=== PATIENT | male | born 1935 | race Asian ===

== ENCOUNTER 2018-07-23 15:41 | Inpatient (IN) | payer OTHER, MEDICAID ==
[~2018-07-23] VITALS: Ht 167.6 cm; Wt 64.0 kg
[2018-07-23 15:51] VITALS: BP_SYST 157
--- NOTE | 2018-07-23 16:12 | NUR ---
Patient to ER bed 3 to gown for evaluation. Side rails up. Report given to Suze KEARNS.
--- NOTE | 2018-07-23 16:27 | NUR ---
patient is AOx4 coming from home with family at bedside. patient c/o generalized weakness and flu like symptoms x 2 days. patient has not had a flu shot this year. patient denies any other complaint or injury at this time.
--- NOTE | 2018-07-23 16:30 | NUR ---
ER at bedside examining patient.
[2018-07-23 16:42] LABS: BASOPHILS % (AUTO) 0.1 % (0.0-2.0); EOSINOPHILS % (AUTO) 0.3 % (0.0-4.0); HEMATOCRIT 33.9 % (36-54); HEMOGLOBIN 11.8 g/dL (14.0-18.0); LYMPHOCYTES # (AUTO) 0.7 K/uL (1.0-5.5); LYMPHOCYTES % (AUTO) 6.3 % (20.5-51.5); MEAN CORPUSCULAR HEMOGLOBIN 31 pg (27-31); MEAN CORPUSCULAR HGB CONC 35 % (32-36); MEAN CORPUSCULAR VOLUME 90 fL (79.0-98.0); MONOCYTES # (AUTO) 0.7 K/uL (0.0-1.0); MONOCYTES % (AUTO) 6.3 % (1.7-9.3); NEUTROPHILS # (AUTO) 9.1 K/uL (1.8-7.7); PLATELET COUNT (AUTO) 179 K/uL (130-430); RED BLOOD CELL COUNT(AUTO) 3.78 MIL/uL (4.2-6.2); RED CELL DISTRIBUTION WIDTH 11.8 % (9.0-15.0); WHITE BLOOD COUNT (AUTO) 10.5 K/uL (4.8-10.8)
[2018-07-23 16:50] LABS: ANION GAP 11 (5-15); CHLORIDE 102 mmol/L (98-107); CREATININE 1.68 mg/dL (0.55-1.30); GLUCOSE 222 mg/dL (70-99); POTASSIUM 3.5 mmol/L (3.5-5.1); SODIUM SERUM 137 mmol/L (136-145); UREA NITROGEN, BLOOD 31 mg/dL (8-21)
[2018-07-23 16:56] LABS: INR 0.9 (0.80-1.20); PROTHROMBIN TIME 9.2 SECS (9.5-12.5)
[2018-07-23 17:02] LABS: ALANINE AMINOTRANSFERASE 20 U/L (12-78); ALBUMIN 2.8 g/dL (3.4-4.8); ASPARTATE AMINOTRANSFERASE 30 U/L (10-37); TOTAL BILIRUBIN 0.4 mg/dL (0.0-1.0)
--- NOTE | 2018-07-23 17:25 | NUR ---
Pt went to radiology in stable condition
[2018-07-23] MEDS ORDERED: ASPIRIN 325 MG TABLET PO ONE (17:45)
[2018-07-23] MEDS ORDERED: ONDANSETRON 4 MG ODT TAB PO ONE (17:45)
--- NOTE | 2018-07-23 17:45 | NUR ---
Pt returned from radiology in stable condition
[2018-07-23] MEDS ORDERED: METF1000 PO (18:05)
[2018-07-23] MEDS ORDERED: SIMV40TA2 PO (18:05)
[2018-07-23] MEDS ORDERED: AMLO5TAB4 PO (18:05)
[2018-07-23] MEDS ORDERED: GLIP2.5T3 PO (18:05)
[2018-07-23] MEDS ORDERED: VALS1TAB74 PO (18:05)
[2018-07-23] MEDS ORDERED: TAMS-11 PO (18:05)
--- NOTE | 2018-07-23 18:05 | NUR ---
Medication reconciliation completed with information provided by patient. Any prior medication reconciliation on file was reviewed and corrected.
--- NOTE | 2018-07-23 18:35 | NUR ---
Note bijan in EDM - 07/23/18 at 1836 by [email or web address] Patient will be admitted to care of MariaD olores SPRAGUE. Admitted to telemetry unit. Will go to room 114a. Belongings list completed. Summary report printed. Report will be given at bedside.
--- NOTE | 2018-07-23 18:37 | NUR ---
Patient will be admitted to care of Maria Dolores SPRAGUE. Admitted to telemetry unit. Will go to room 114a. Belongings list completed. Summary report printed. Report will be given at bedside.
--- NOTE | 2018-07-23 18:49 | NUR ---
ADMISSION NOTE Received patient from ER via laci, received report from INSPECTOR WREATH. Patient admitted with diagnosis of SYNCOPE. Patient oriented to hospital routine, call light, toileting and safety-patient verbalized understanding.
[2018-07-23 18:54] VITALS: BP_SYST 149
[2018-07-23 19:12] LABS: BILIRUBIN,URINE NEGATIVE (NEGATIVE); BLOOD, URINE 2+ (NEGATIVE); CLARITY/URINE SL HAZY (CLEAR); COLOR,URINE YELLOW (YELLOW); GLUCOSE,URINE 1+ (NEGATIVE); KETONES,URINE 1+ (NEGATIVE); LEUKOCYTE ESTERASE ,URINE NEGATIVE (NEGATIVE); NITRITE, URINE NEGATIVE (NEGATIVE); PROTEIN URINE 3+ (NEGATIVE); UROBILINOGEN,URINE 0.2 (0.2-1.0)
--- NOTE | 2018-07-23 19:20 | NUR ---
Handoff report to Cecily RN , patient in stable condition.
[2018-07-23 19:40] VITALS: BP_SYST 145
--- NOTE | 2018-07-23 19:45 | NUR ---
OPENING NOTE Patient resting in the bed. No acute distress. Respiration even and unlabored. AAO x 4. Denied of pain. Skin warm and dry to touch. SL intact to LAC, no redness, no swelling, patent. Daughter at bedside. Discussed the safety issue, use call light when needs help, and plan of care, verbally understanding. Safety measure maintained. Call light within reached. Bed locked in low position, side rails up, bed alarm on. Urinal provided at bedside within reached. Will continue to monitor.
[2018-07-23 19:53] LABS: BACTERIA,URINE FEW /HPF (None Seen); RBC,URINE 0-3 /HPF (0-3); WBC,URINE 0-3 /HPF (0-3)
[2018-07-23 19:54] LABS: COARSE GRANULAR CASTS,URINE 0-10 /LPF (None Seen); MUCUS,URINE None Seen /LPF (None Seen)
--- NOTE | 2018-07-23 22:18 | NUR ---
URINAL Assisted patient to use urinal, void yellow urine 200ml. No hematuria/dysuria noted. Safety measure maintained. Call light within reached. Bed locked in low position, side rails up, bed alarm on. Continue to monitor.
[2018-07-24] VITALS (7 sets, daily range): BP systolic 95–173
--- NOTE | 2018-07-24 00:15 | NUR ---
URINAL Assisted patient to use urinal, voided with yellow urine. No hematuria/dysuria noted. Safety measure maintained. Call light within reached. Bed locked in low position, side rails up, bed alarm on. Continue to monitor.
[2018-07-24] MEDS ORDERED: ONDANSETRON HCL 4 MG/2 ML VIAL IVP PRN (01:00)
--- NOTE | 2018-07-24 01:42 | NUR ---
ROUND Patient resting in the bed with eyes closed. No acute distress. Respiration even and unlabored. Safety measure maintained. Bed locked in low position, side rails up, bed alarm on. Call light within reached. Continue to monitor.
[2018-07-24] MEDS: NACL 0.9% 1,000 ML IV SCH ×3 (03:31→16:31)
--- NOTE | 2018-07-24 03:58 | NUR ---
URINAL Assisted patient to use urinal, void 100ml of yellow urine. No hematuria/dysuria noted. Safety measure maintained. Call light within reached. Bed locked in low position, side rails up, bed alarm on. Continue to monitor.
[2018-07-24] MEDS: ACETAMINOPHEN 325 MG TABLET PO PRN ×3 (04:13→16:24)
--- NOTE | 2018-07-24 04:13 | NUR ---
TYLENOL GIVEN Patient c/o headache 10/05, Tylenol 650mg PO given as ordered. No acute distress. IV intact, IVF infusing well. Safety measure maintained. Bed locked in low position, side rails up, bed alarm on. Continue to monitor.
--- NOTE | 2018-07-24 06:35 | NUR ---
CLOSING NOTE Patient resting in the bed comfortable. No acute distress. Respiration even and unlabored. Denied of pain at this time. Skin warm and dry to touch. Iv intact to LAC, no redness, no swelling, no drainage. On NS at 75ml/hr, infusing well. All needs met. Hourly rounding during shift. Safety measure maintained. Call light within reached. Bed locked in low position, side rails up, bed alarm on. Will endorse to morning shift nurse.
[2018-07-24] MEDS: INSULIN ASPART 100 UNITS/ML, 10 ML VIAL (NovoLOG) SUBCUT PRN ×2 (06:44→20:24)
--- NOTE | 2018-07-24 08:05 | NUR ---
opening note patient is resting in bed eating his breakfast, A&Ox4, assessment completed, educated resolution specialist light system and plan of care, patient verbalized understanding, no other needs at this time, bed in the lowest position, bed alarm on, call light within reach, two side rails up, fall and aspiration precautions in place.
[2018-07-24] MEDS: TAMSULOSIN HCL 0.4 MG CAP PO SCH (08:09)
--- NOTE | 2018-07-24 08:09 | NUR ---
Medications patient is resting in bed eating his breakfast, educated on medication uses and side effects, patient verbalized understanding and tolerated well, no other needs at this time, bed in the lowest position, bed alarm on, call light within reach, two side rails up, fall and aspiration precautions in place.
--- NOTE | 2018-07-24 08:11 | NUR ---
Ultrasound in room for echo Addendum: 07/24/18 at 1025 by Shira Toney RN results ejection fraction 65%
[2018-07-24 08:18] LABS: BASOPHILS % (AUTO) 0.2 % (0.0-2.0); EOSINOPHILS % (AUTO) 0.2 % (0.0-4.0); HEMATOCRIT 31.5 % (36-54); LYMPHOCYTES # (AUTO) 1.6 K/uL (1.0-5.5); LYMPHOCYTES % (AUTO) 17.6 % (20.5-51.5); MEAN CORPUSCULAR HEMOGLOBIN 32 pg (27-31); MEAN CORPUSCULAR HGB CONC 35 % (32-36); MEAN CORPUSCULAR VOLUME 92 fL (79.0-98.0); MONOCYTES # (AUTO) 0.7 K/uL (0.0-1.0); PLATELET COUNT (AUTO) 168 K/uL (130-430); RED BLOOD CELL COUNT(AUTO) 3.45 MIL/uL (4.2-6.2); WHITE BLOOD COUNT (AUTO) 9.3 K/uL (4.8-10.8)
[2018-07-24 08:40] LABS: CHLORIDE 104 mmol/L (98-107); POTASSIUM 3.8 mmol/L (3.5-5.1); SODIUM SERUM 138 mmol/L (136-145)
[2018-07-24 08:41] LABS: ANION GAP 8 (5-15); GLUCOSE 244 mg/dL (70-99)
[2018-07-24 08:42] LABS: CALCIUM 7.6 mg/dL (8.4-11.0); CREATININE 1.59 mg/dL (0.55-1.30); UREA NITROGEN, BLOOD 27 mg/dL (8-21)
[2018-07-24 08:43] LABS: TOTAL BILIRUBIN 0.2 mg/dL (0.0-1.0)
[2018-07-24 08:44] LABS: ALANINE AMINOTRANSFERASE 16 U/L (12-78); ALBUMIN 2.3 g/dL (3.4-4.8); ASPARTATE AMINOTRANSFERASE 19 U/L (10-37)
[2018-07-24 08:56] LABS: CHOLESTEROL 144 mg/dL (<200); HDL CHOLESTEROL 42 mg/dL (>45); LDL CHOLESTEROL 77 mg/dL (<100); TRIGLYCERIDES 142 mg/dL (30-150)
--- NOTE | 2018-07-24 10:20 | NUR ---
rounds patient is resting, eyes closed and breathing easy and nonlabored, no other needs at this time, bed in the lowest position, bed alarm on, call light within reach, two side rails up, fall and aspiration precautions in place.
[2018-07-24] MEDS: ALBUTEROL SULFATE 0.083% 2.5 MG/3 ML VIAL.NEB INH PRN ×2 (10:52→23:03)
[2018-07-24] MEDS ORDERED: ACETAMINOPHEN 650 MG/20.3 ML UDC PO PRN (11:00)
--- NOTE | 2018-07-24 11:25 | NUR ---
CONSULTATION PAGED/CALLED Reason for Consultation: SYNCOPE Person Who was Notified: SPOKE WITH JOSE FROM OFFICE Consulting Physician: Hr Advisor Specialty: CARDIO Ordering Physician:
[2018-07-24] MEDS ORDERED: GLIP5TAB13 PO (11:38)
--- NOTE | 2018-07-24 11:42 | NUR ---
accuchek and tylenol patient is resting in bed with family present, accuchek done and no sliding scale insulin needed at this time, patient complained of right ear pain, educated on medication use and side effects, patient verbalized understanding and tolerated well, changed linen per patient request, no other needs at this time, bed in the lowest position, bed alarm on, call light within reach, two side rails up, fall and aspiration precautions in place.
--- NOTE | 2018-07-24 12:30 | NUR ---
Ultrasound in room for US carotid
--- NOTE | 2018-07-24 13:35 | NUR ---
ROUNDS patient is resting in bed, eyes closed and breathing easy and nonlabored, no other needs at this time, bed in the lowest position, bed alarm on, call light within reach, two side rails up, fall and aspiration precautions in place.
--- NOTE | 2018-07-24 15:55 | NUR ---
ROUNDS patient is resting in bed, eyes closed and breathing easy and nonlabored, made some mouth movement, no other needs at this time, bed in the lowest position, bed alarm on, call light within reach, two side rails up, fall and aspiration precautions in place, IV line intact.
--- NOTE | 2018-07-24 16:24 | NUR ---
TYLENOL patient is resting in bed, patient complained of right ear pain, educated on medication use and side effects, patient verbalized understanding and tolerated well, changed linen per patient request, no other needs at this time, bed in the lowest position, bed alarm on, call light within reach, two side rails up, fall and aspiration precautions in place. Addendum: 07/24/18 at 1641 by Shira Toney RN IV fluids bag was changed
[2018-07-24] MEDS: SIMVASTATIN 40 MG TABLET PO SCH (17:38)
--- NOTE | 2018-07-24 17:38 | NUR ---
accuchek and medications patient is resting in bed with family present, accuchek done and no sliding scale insulin needed at this time, educated on medication use and side effects, patient verbalized understanding and tolerated well, no other needs at this time, bed in the lowest position, bed alarm on, call light within reach, two side rails up, fall and aspiration precautions in place, Clothespin Drier Operator consult Dr Robles came by to see patient.
--- NOTE | 2018-07-24 19:20 | NUR ---
closing note report given at bedside, patient is resting in bed, eyes closed and breathing easy and nonlabored, made some mouth movement, no other needs at this time, endorsed report to noc shift nurse, bed in the lowest position, bed alarm on, call light within reach, two side rails up, fall and aspiration precautions in place, IV line intact.
--- NOTE | 2018-07-24 19:38 | NUR ---
Initial Note Received patient asleep but easily arousable. Patient is awake, alert and oriented. No SOB noted. Denies any pain, headache or n/v at this time. Encouraged to eat more next time. Offered some snacks and juice for tonight. IVF infusing. Urinal at the bedside. Skin intact and no peripheral edema noted. Needs attended. Care and monitoring will be provided per protocol. Call light within reach. Bed alarm on and at lowest position at all times. Kept warm and comfortable.
--- NOTE | 2018-07-24 20:15 | NUR ---
RN Note Blood sugar was 224, refused insulin at this time. Patient said it will go down in the morning. Needs attended. Used urinal, emptied 150 ml of juan colored urine. Kept warm and comfortable.
--- NOTE | 2018-07-24 21:00 | NUR ---
RN Note Patient's family arrived and updated information. IV leaking on left AC. Changed dressing and will continue to monitor. Changed gown and pads. Kept clean and dry.
--- NOTE | 2018-07-24 23:00 | NUR ---
RN Note Patient's son and in law left. IV not leaking but will continue to monitor. Coughs and offered HHN. RT came and given HHN. Given decaf coffee per patient's request. Repositions himself. Kept comfortable.
[2018-07-25] VITALS: BP_SYST 155
--- NOTE | 2018-07-25 | NUR ---
RN Note Patient is awake and alert. Sat up on the side of the bed to use the urinal. Emptied about 200 ml. Assisted back to bed. Changed patient's gown, spilled some coffee on his gown. IV not leaking at this time. Kept clean and dry.
--- NOTE | 2018-07-25 03:00 | NUR ---
RN Note Sleeping at this time. No SOB or grimacing noted. IVF infusing.
--- NOTE | 2018-07-25 05:00 | NUR ---
RN Note Patient awake and alert, forgetful at times. He's looking for his son and daughter in law. Made him aware that they went home last night. Given coffee per patient's request. IVF at [facility]. Will verify with MD rosa IVF order, will endorse. Kept clean, dry and comfortable.
--- NOTE | 2018-07-25 06:52 | NUR ---
End Note Afebrile. VS stable. No complain of SOB or n/v throughout the night. Complain of mild pain on right ear that radiates to his head but refused pain medication at this time. Latest blood sugar was 196, refused coverage even last night. Due med given and given juice and snacks. Uses urinal, sits up on the side of the bed. Saline lock at this time. Needs clarification with MD rosa IVF order and needs DVT prophylaxis and cough medication PRN. Fall precaution observed. Care and monitoring provided per protocol. Needs attended. Call light within reach. Bed alarm on and at lowest position at all times. NSR on monitor. Kept warm and comfortable.
--- NOTE | 2018-07-25 08:00 | NUR ---
Opening notes, received pt in bed, pt is aaox3 denies pain, no sob, no resp distress. iv on l ac intact and patent. iv fluids infusing well. pt is afebrile. on room air. o2 sat is 94%. pt assisted to stand to void in the urinal. pt needs assist, gait still unsteady. pt then assisted to chair for breakfast. call light in reach. bed in low position. will cont to monitor.
[2018-07-25] MEDS: TAMSULOSIN HCL 0.4 MG CAP PO SCH (08:52)
[2018-07-25] MEDS: NACL 0.9% 1,000 ML IV SCH ×2 (08:55→22:39)
--- NOTE | 2018-07-25 10:30 | NUR ---
dr mobley was here and seen pt. seen talking and examining pt. reported to md altamirano c/o of r. ear ache and dry cough, asked re dvt prophylaxis. said it is ok. said he will be going home today.
--- NOTE | 2018-07-25 11:37 | NUR ---
Nutrition Update Massimo Scale 17 noted. Pt admitted for syncope. Diet: [facility] BMI: 22.6 kg/m2 RD to follow per nutrition care standards.
--- NOTE | 2018-07-25 12:29 | NUR ---
RPT co-treated patient with the SPIRAL WINDER. See Physical Therapy treatment note. Patient was left sitting in the bedside chair with nursing supervision. Call light was placed next to him.
[2018-07-25 12:34] VITALS: BP_SYST 175
[2018-07-25] MEDS ORDERED: cloNIDine HCL 0.1 MG TABLET PO ONE (12:45)
[2018-07-25] MEDS: INSULIN ASPART 100 UNITS/ML, 10 ML VIAL (NovoLOG) SUBCUT PRN ×2 (12:54→20:21)
--- NOTE | 2018-07-25 12:59 | NUR ---
pt given clonidine for sbp 175 and 6 units novolog for bs of 279
[2018-07-25 14:24] VITALS: BP_SYST 139
[2018-07-25 16:56] VITALS: BP_SYST 146
--- NOTE | 2018-07-25 17:13 | NUR ---
pt's temp rechecked orally, it was 101.2, will inform
[2018-07-25] MEDS: ACETAMINOPHEN 325 MG TABLET PO PRN ×2 (17:17→22:38)
[2018-07-25] MEDS: SIMVASTATIN 40 MG TABLET PO SCH (17:17)
--- NOTE | 2018-07-25 18:19 | NUR ---
rechecked temp orally, it was 99.3. dr calhoun made aware of the fever. no new order
--- NOTE | 2018-07-25 18:34 | NUR ---
CLOSING NOTES, PT'S BP IS NOW BETTER, ON THE 140S. FEVER ALSO SUBSIDED AFTER TYLENOL. TEMP NOW WAS 99.[address] AMBROSE MADE AWARE. PT'S DTR AT BEDSIDE. MADE AWARE OF THE FEVER. NO NEW ORDERS. WILL ENDORSE TO NIGHT RN.
--- NOTE | 2018-07-25 19:35 | NUR ---
PT'S GRANDSON MINERVA AT BEDSIDE. INFORMED THAT PT HAD HIGH BLOOD PRESSURE AND FEVER TODAY. PT ENDORSED TO NIGHT RN. PT DENIES EAR PAIN SINCE THIS AFTERNOON.
--- NOTE | 2018-07-25 19:59 | NUR ---
OPENING NOTES Pt and endorsement received from day shift nurse. Pt is AAOx4, lying in bed with grandson at bedside. Pt on IVF NS at 75ml/hr. No complains of pain or discomfort at this time and no signs of acute distress noted. Encouraged to use call light when needed. Safety precautions in place with 3 side rails up, bed alarm on and at its lowest level. Will continue to monitor.
[2018-07-25 20:12] VITALS: BP_SYST 116
--- NOTE | 2018-07-25 22:38 | NUR ---
TYLENOL 650MG GIVEN Pt complained of headache. Son-in-law at bedside and stating concerns about pt's been coughing for a month. Told the son-in-law that we will inform MD to order/prescribe and cough medication since there is no order for cough medication at this time. Informed RT Michelle to give breathing treatment. Call light with pt and safety precautions in place. Will continue to monitor.
--- NOTE | 2018-07-26 00:05 | NUR ---
RESTING Pt is resting in bed with both eyes closed. With visible chest rise and fall with non-labored breathing noted. No signs of acute distress noted. Safety precautions in place and call light with pt. Will continue to monitor.
[2018-07-26 00:52] VITALS: BP_SYST 132
--- NOTE | 2018-07-26 02:26 | NUR ---
RESTING Pt is resting in bed with both eyes closed. With visible chest rise and fall with non-labored breathing noted. No signs of acute distress or SOB. Safety precautions in place and call light with pt. Will continue to monitor.
--- NOTE | 2018-07-26 02:40 | NUR ---
ROUNDS [place] pt coughing. Asked pt if he still wants the breathing treatment but he said no and said he is okay at this time. Will continue to monitor.
--- NOTE | 2018-07-26 04:17 | NUR ---
RESTING Pt is resting in bed with both eyes closed. With visible chest rise and fall with non-labored breathing noted. No complains of pain or discomfort and no signs of acute distress or SOB. Safety precautions in place and call light with pt. Will continue to monitor.
[2018-07-26] MEDS: INSULIN ASPART 100 UNITS/ML, 10 ML VIAL (NovoLOG) SUBCUT PRN ×3 (06:08→17:00)
--- NOTE | 2018-07-26 06:49 | NUR ---
CLOSING NOTES Pt is resting in bed with both eyes closed. With visible chest rise and fall with non-labored breathing noted. No signs of acute distress or SOB. All needs attended throughout the shift. Safety precautions in place and call light with pt. Will endorse to day shift nurse.
--- NOTE | 2018-07-26 07:42 | NUR ---
opening note pt awake alert, in no distress. pt reoriented to call light use, bed alarm in place with bed in the lowest position. safety maintained.
[2018-07-26 08:00] VITALS: BP_SYST 168
[2018-07-26] MEDS: TAMSULOSIN HCL 0.4 MG CAP PO SCH (08:37)
[2018-07-26] MEDS: cloNIDine HCL 0.1 MG TABLET PO PRN (08:38)
--- NOTE | 2018-07-26 08:40 | NUR ---
am meds morning meds given. prn clonidine given at this time per md parameters, will monitor.
[2018-07-26] MEDS ORDERED: LEVOFLOXACIN 500 MG/D5W 100 ML IV ONE (09:30)
[2018-07-26] MEDS: NACL 0.9% 1,000 ML IV SCH (10:19)
[2018-07-26] MEDS: ACETAMINOPHEN 325 MG TABLET PO PRN ×2 (10:19→16:55)
--- NOTE | 2018-07-26 10:24 | NUR ---
ivpb levaquin hung at this time. po tylenol given for head pain. no other distrerss noted. asked pt if he would like a breathing treatment at this time, pt stated he does not want one.
[2018-07-26] MEDS ORDERED: AMOX-426 PO (10:32)
[2018-07-26] MEDS ORDERED: ALBMDI INH (10:34)
[2018-07-26 12:02] VITALS: BP_SYST 151
--- NOTE | 2018-07-26 13:33 | NUR ---
PT MADE COMFORTABLE IN CHAIR AT BEDSIDE TO EAT LUNCH. NO DISTRESS NOTED.
[2018-07-26 16:02] VITALS: BP_SYST 128
[2018-07-26] MEDS: SIMVASTATIN 40 MG TABLET PO SCH (17:01)
--- NOTE | 2018-07-26 17:23 | NUR ---
IV RE-INSERTION: Complaining of pain to IV site. Restarted on RIGHT WRIST 24g . Successful after 2 attempts. Resumed current IVF of ns and regulated @ 75 per hour. Will observe for any signs of infiltration.
--- NOTE | 2018-07-26 17:24 | NUR ---
pt c/o headache given tylenol as ordered.
--- NOTE | 2018-07-26 18:48 | NUR ---
closing note all needs met through shift, safety maintained, will endorse care to shift superintendent caustic cresylate.
--- NOTE | 2018-07-26 19:10 | NUR ---
OPENING NOTES RECEIVED PATIENT IN BED AAO X4. FAMILY MEMBER AT BEDSIDE. BREATHING UNLABORED. DENIES ANY PAIN. PLAN OF CARE REVIEWED WITH PATIENT. CALL LIGHT WITH IN REACH. BED IN LOWEST LOCKED POSITION. BED ALARM ON.
[2018-07-26 20:10] VITALS: BP_SYST 131
--- NOTE | 2018-07-26 20:15 | NUR ---
DINNER PATIENT ASSISTED TO SIT IN CHAIR TO EAT DINNER. NO DISTRESS NOTED. FAMILY MEMBER AT BEDSIDE. CALL LIGHT WITH IN REACH.
--- NOTE | 2018-07-26 20:24 | NUR ---
BLOOD SUGAR ROUTINE FINGER STICK GLUCOSE 149. NO COVERAGE NEEDED. HS CARE DONE BY MANAGER CLIENT SERVICE.
--- NOTE | 2018-07-26 23:49 | NUR ---
ROUNDS PATIENT RESTING IN BED EYES CLOSED. BREATHING UNLABORED. IVF INFUSING WITH IV LINE INTACT. CALL LIGHT WITHIN REACH. BED ALARM ON.
[2018-07-27] VITALS (8 sets, daily range): BP systolic 142–187
[2018-07-27] MEDS: NACL 0.9% 1,000 ML IV SCH (01:03)
--- NOTE | 2018-07-27 01:54 | NUR ---
ROUNDS PATIENT RESTING IN BED. NO DISTRESS NOTED. IVF INFUSING ORDERED. IV LINE INTACT. CALL LIGHT WITH IN REACH. BED ALARM ON.
[2018-07-27] MEDS: cloNIDine HCL 0.1 MG TABLET PO PRN (06:09)
[2018-07-27] MEDS: ACETAMINOPHEN 325 MG TABLET PO PRN ×3 (06:10→19:44)
--- NOTE | 2018-07-27 06:10 | NUR ---
BP/HEADACHE PATIENT C/O OF HEADACHE. PATIENT BP CHECKED 165/73. CLONIDINE AND TYLENOL GIVEN ORDERED.
[2018-07-27] MEDS: INSULIN ASPART 100 UNITS/ML, 10 ML VIAL (NovoLOG) SUBCUT PRN ×3 (06:14→17:07)
[2018-07-27 07:06] LABS: BASOPHILS % (AUTO) 0.2 % (0.0-2.0); EOSINOPHILS # (AUTO) 0.1 K/uL (0.0-0.4); EOSINOPHILS % (AUTO) 0.8 % (0.0-4.0); HEMATOCRIT 29.4 % (36-54); HEMOGLOBIN 9.9 g/dL (14.0-18.0); LYMPHOCYTES # (AUTO) 1.4 K/uL (1.0-5.5); MEAN CORPUSCULAR HEMOGLOBIN 31 pg (27-31); MEAN CORPUSCULAR HGB CONC 34 % (32-36); MEAN CORPUSCULAR VOLUME 93 fL (79.0-98.0); MONOCYTES # (AUTO) 0.8 K/uL (0.0-1.0); MONOCYTES % (AUTO) 8.1 % (1.7-9.3); NEUTROPHILS # (AUTO) 7.3 K/uL (1.8-7.7); NEUTROPHILS % (AUTO) 75.9 % (40.0-70.0); PLATELET COUNT (AUTO) 224 K/uL (130-430); RED BLOOD CELL COUNT(AUTO) 3.15 MIL/uL (4.2-6.2); RED CELL DISTRIBUTION WIDTH 11.8 % (9.0-15.0); WHITE BLOOD COUNT (AUTO) 9.6 K/uL (4.8-10.8)
--- NOTE | 2018-07-27 07:11 | NUR ---
CLOSING NOTES PATIENT RESTING IN BED. NO DISTRESS NOTED. IVF INFUSING WITH IV LINE INTACT. PATIENT NEEDS ATTENDED. CALL LIGHT WITH IN REACH. BED IN LOWEST LOCKED POSITION WITH ALARM ON.
--- NOTE | 2018-07-27 07:30 | NUR ---
INITIAL NOTE RECEIVED PT IN BED, NO S/S OF DISTRESS OR SOB NOTED, PT HAS NO C/O PAIN AT THIS TIME, PT IN STABLE CONDITION, PT AAOX4. VERBAL. IV CATHETER PATENT, NO SIGNS ON INFECTION OR INFILTRATION NOTED. PT HAS NO C/O DIZZINESS AT THIS TIME, BED AT LOWEST POSITION, CALL LIGHT WITHIN REACH, WILL CONTINUE TO MONITOR PT FOR ANY CHANGES, FALL AND SAFETY PRECAUTIONS IN PLACE.
[2018-07-27 07:41] LABS: ANION GAP 11 (5-15); CALCIUM 8.1 mg/dL (8.4-11.0); CHLORIDE 105 mmol/L (98-107); CREATININE 1.28 mg/dL (0.55-1.30); GLUCOSE 207 mg/dL (70-99); POTASSIUM 3.3 mmol/L (3.5-5.1); SODIUM SERUM 138 mmol/L (136-145); UREA NITROGEN, BLOOD 16 mg/dL (8-21)
[2018-07-27] MEDS: TAMSULOSIN HCL 0.4 MG CAP PO SCH (08:27)
[2018-07-27] MEDS ORDERED: LEVOFLOXACIN 250 MG/D5W 50 ML IV SCH (09:00)
--- NOTE | 2018-07-27 09:10 | NUR ---
ROUNDS DR GUICHO AMBROSE, AWARE OF PATIENT'S CONDITION, AWARE OF LAB RESULTS.
[2018-07-27] MEDS ORDERED: LEVO250T2 PO (09:41)
[2018-07-27] MEDS ORDERED: PRED20TA PO (09:42)
--- NOTE | 2018-07-27 10:20 | NUR ---
ROUNDS PT IN BED, NO S/S OF DISTRESS OR SOB NOTED, PT HAS NO C/O PAIN AT THIS TIME, PT IN STABLE CONDITION, PT RESTING COMFORTABLY, WILL CONTINUE TO MONITOR PT FOR ANY CHANGES.
--- NOTE | 2018-07-27 11:10 | NUR ---
BLOOD PRESSURE PATIENT'S BLOOD PRESSURE IS 187/74, PULSE 66, PT ASYMPTOMATIC, NO C/O HEADACHE OR DIZZINESS, WILL CONTINUE TO MONITOR PT FOR ANY CHANGES, DR ROMANA AMBROSE AND MADE AWARE, NEW ORDERS GIVEN. Addendum: 07/27/18 at 1257 by Ela Grayson RN blood pressure recheck is 157/62, 65. pt asymptomatic Addendum: 07/27/18 at 1331 by Ela Grayson RN md called and made aware of patient's current blood pressure, per md harris to d/c pt home with current blood pressure
[2018-07-27] MEDS ORDERED: cloNIDine HCL 0.1 MG TABLET PO ONE (11:15)
--- NOTE | 2018-07-27 12:58 | NUR ---
ROUNDS PT IN BED, NO S/S OF DISTRESS OR SOB NOTED, PT HAS NO C/O PAIN AT THIS TIME, PT IN STABLE CONDITION, PT RESTING COMFORTABLY, WILL CONTINUE TO MONITOR PT FOR ANY CHANGES. PT TALKING TO VISITORS AT BEDSIDE.
--- NOTE | 2018-07-27 13:23 | NUR ---
MD RACHEL CALLED REPLACED BY [facility] AT SPOKE WITH DR.JANDIAL CARTER RAJNISH GUM MACHINE OPERATOR.
--- NOTE | 2018-07-27 13:45 | NUR ---
CM DC PLANNING: DME CM DCP ASSESSMENT DONE WITH Pt AT BEDSIDE. REVIEWED PT NOTES REGARDING RECOMMENDATION FOR FWW; Pt ABLE TO WALK 50 FEET WITH USE OF FWW. DTR/FRANCES Maya ARRIVED WITH /ROBERT HEAD ([phone]) TO TAKE Pt HOME TODAY PER MD ORDER. DTR/FRANCES IS REQUESTING A 3:1 BSC DUE TO Pt's DIFFICULTY GETTING TO BATHROOM AT HOME, ESPECIALLY AT NIGHT, WITHOUT HAVING ACCIDENTS. DR. LINDO NOTIFIED OF POTENTIAL DME NEED AND PT's RECOMMENDATION FOR FWW; AND DTR's REQUEST FOR BSC. ORDERS OBTAINED FOR DME (FWW & 3:1 BSC). CM OBTAINED AUTH FROM [facility]/CHRISTOPH FOR REQUESTED DME. AUTH #: [id number] PER [facility] VENDOR. 1330: CM CONTACTED [facility]: [phone]; SPOKE WITH MIGUEL WHO IS REQUESTING LEAD ETL DEVELOPER TO CONTACT THIS CM TO DETERMINE DELIVERY PLANS FOR DME. CM UPDATED URMILA/RAVEN. Addendum: 07/27/18 at 1425 by Josephine Johnson RN 1415: REC'd CALL BACK FROM [facility] [employer]ELOPER/ELIZABETH AFTER 2ND CALL. PER ELIZABETH, FWW & 3:1 BSC ARE DME THAT IS SHIPPED FROM VENDOR TO Pt's HOME; CM WILL FAX ORDER AND AUTH # FROM [facility] [employer]; & PER ELIZABETH OFFICE WILL COORDINATE FOR SHIPMENT TO Pt's HOME ON 07/28/18. Pt WILL LIKELY RECEIVE ON 1/02/18. CM UPDATED URMILA/RAVEN TO INCLUDE CONTACT NUMBER FOR [facility] ([phone]) WITH DC INSTRUCTIONS FOR DTR WHO MAY WANT TO CALL [facility] IN A.M. AFTER VENDOR OPENS AROUND 8-9 A.M. TO INQUIRE IF DME CAN BE PICKED UP BY FAMILY AT [facility]. Addendum: 07/27/18 at 1511 by Josephine Johnson RN MET WITH DTR/FRANCES WHO IS REQUESTING 3:1 BSC DUE TO Pt's INABILITY TO GET TO BATHROOM, ESPECIALLY DURING NIGHT TIME HOURS, WITHOUT HAVING STOOL/BLADDER ACCIDENT. Pt RECOMMENDED BY Pt TO HAVE FWW DUE TO DIZZINESS; Pt PREVIOUSLY WALKING WITH A CANE, BUT S/P FALL PRIOR TO THIS ADMISSION. FWW & 3:1 BSC TO BE SHIPPED FROM AUTHORIZED VENDOR/[facility] PER AUTH # [id number] THESE ITEMS ARE NO LONGER HAND DELIVERED. DCP ASSESSMENT COMPLETED TODAY; DME COORDINATED PRIOR TO DC HOME TODAY; & URMILA/RAVEN UPDATED RE: ANTICIPATED DELIVERY OF ORDERED DME.
--- NOTE | 2018-07-27 16:50 | NUR ---
ROUNDS PT IN BED, NO S/S OF DISTRESS OR SOB NOTED, PT HAS NO C/O PAIN AT THIS TIME, PT IN STABLE CONDITION, PT RESTING COMFORTABLY, WILL CONTINUE TO MONITOR PT FOR ANY CHANGES. AWAITING DAUGHTER TO SECRETARY OFFICE CLERK PT HE IS D/C HOME AND BP IS BETTER.
[2018-07-27] MEDS: SIMVASTATIN 40 MG TABLET PO SCH (17:06)
--- NOTE | 2018-07-27 18:52 | NUR ---
CLOSING NOTE PT IN BED, NO S/S OF DISTRESS OR SOB NOTED, PT HAS NO C/O PAIN AT THIS TIME, PT IN STABLE CONDITION, PT AAOX4. VERBAL. IV CATHETER PATENT, NO SIGNS ON INFECTION OR INFILTRATION NOTED. PT HAS NO C/O DIZZINESS AT THIS TIME, BED AT LOWEST POSITION, CALL LIGHT WITHIN REACH, WILL ENDORSE CARE OF PT TO INCOMING NURSE, FALL AND SAFETY PRECAUTIONS IN PLACE. AWAITING FOR D/C TODAY.
--- NOTE | 2018-07-27 19:00 | NUR ---
OPENING NOTE Late entry due to patient care. Bedside report received from dayshift nurse. Patient received lying in bed, watching TV. No s/s of acute distress noted. Breathing is even and unlabored. Call light with patient. Bed locked and at lowest position. Patient denies any pain or discomfort at this time. Will continue to monitor.
--- NOTE | 2018-07-27 20:00 | NUR ---
DISCHARGE Patient's son arrived at this time. IV DC'ed, IV site shows no signs of infection, catheter fully intact. No Active bleeding noted. No s/s of acute distress noted. Breathing even and unlabored. Patient denies any pain or discomfort. Vitals are stable. Patient escorted out via wheelchair. All needs met throughout shift. All questions and concerns asked regarding discharge.
== END 2018-07-27 20:00 | disposition home or self-care (01) | DRG 314 ==
LOC: SED 15:41 → STU 18:21
PROVIDERS: ADMIT Internal Medicine; ATTEND Internal Medicine
DX: I95.9 Hypotension, unspecified (principal); J18.9 Pneumonia, unspecified organism; N17.9 Acute kidney failure, unspecified; E46 Unspecified protein-calorie malnutrition; A08.4 Viral intestinal infection, unspecified; J06.9 Acute upper respiratory infection, unspecified; D63.8 Anemia in other chronic diseases classified elsewhere; E11.22 Type 2 diabetes mellitus with diabetic chronic kidney disease; E78.5 Hyperlipidemia, unspecified; I12.9 Hypertensive chronic kidney disease with stage 1 through stage 4 chronic kidney disease, or unspecified chronic kidney disease; N18.9 Chronic kidney disease, unspecified; I65.29 Occlusion and stenosis of unspecified carotid artery; N40.0 Benign prostatic hyperplasia without lower urinary tract symptoms; Z83.3 Family history of diabetes mellitus; Z86.73 Personal history of transient ischemic attack (TIA), and cerebral infarction without residual deficits; Z79.899 Other long term (current) drug therapy; Z68.22 Body mass index [BMI] 22.0-22.9, adult
CPT/HCPCS: 36415; 70450-TC; 71045; 80048; 80053; 80061; 81000-TC; 82962; 83036; 83605; 84484; 85025; 85610-TC; 85730-TC; 86710; 87040-TC; 87086; 93306; 93880; 94640; 97110-GP; 97116-GP; 97163; 97530-GP; 99285; G0378; J1815; J1956; J7030; J7613; Q0162